=== PATIENT | female | born 1975 | race Caucasian/White ===

== ENCOUNTER → 2017-11-01 18:13 | Outpatient (REF) | payer BC, SELFPAY | LOC: LAB 18:13 | PROVIDERS: Visit Provider Nurse Practitioner Obstetrics & Gynecology | DX: Z01.419 Encounter for gynecological examination (general) (routine) without abnormal findings (principal) | CPT/HCPCS: 87086; 87088; 87186 ==

== ENCOUNTER → 2018-12-27 17:02 | Outpatient (CLI) | payer BC, SELFPAY ==
--- NOTE | 2018-12-27 17:03 | MM_ITS ---
PROCEDURE: MM DIG SCREENING MAMM BI W/CAD CLINICAL INDICATION: Routine Screening Mammogram There is no personal or family history of breast cancer. COMPARISON: DMSB DIGITAL MAMM-SCREEN BILATERAL from 08/07/2010 DMDXUL DIG MAMM-DX UNI-LT from 07/25/2015 TECHNIQUE: Standard CC and MLO images were obtained. R2 CAD reviewed. FINDINGS: There is a markedly dense and heterogenic parenchymal pattern lessening the sensitivity of mammography. The findings of bilateral and symmetrical. There are few scattered benign-appearing calcifications in each breast. There is no suspicious lesion in either breast and no suspicious microcalcifications. IMPRESSION: Markedly dense parenchymal pattern with no suspicious BI-RAD Category: 2 Benign Finding(s) FOLLOW-UP: 1YR 1 Year Follow-up (A letter has been sent to the patient regarding results of the study.) Dictated by: Dr. Binu Monroe MD 12/30/2018 15:[address] Binu Monroe MD in [place] 12/30/2018 15:28
== END ==
PROVIDERS: PCP Family Medicine; Visit Provider Nurse Practitioner Obstetrics & Gynecology
DX: Z12.31 Encounter for screening mammogram for malignant neoplasm of breast (principal)
CPT/HCPCS: 77067

== ENCOUNTER → 2019-01-03 16:10 | Outpatient (CLI) | payer BC, SELFPAY | PROVIDERS: Visit Provider Nurse Practitioner Obstetrics & Gynecology | DX: N39.0 Urinary tract infection, site not specified (principal) | CPT/HCPCS: 87086; 87088; 87186 ==

== ENCOUNTER → 2019-02-07 08:30 | Outpatient (POV) | payer BC, SELFPAY | PROVIDERS: Visit Provider Dermatology | DX: Z00.00 Encounter for general adult medical examination without abnormal findings (principal) ==

== ENCOUNTER → 2020-05-20 07:59 | Outpatient (CLI) | payer BC, SELFPAY ==
--- NOTE | 2020-05-20 07:59 | MM_ITS ---
PROCEDURE: MM DIG SCREENING MAMM BI W/CAD Digital Breast Tomosynthesis Included CLINICAL INDICATION: Routine Screening Mammogram There is no personal or family history of breast cancer. COMPARISON: MG DMSB DIGITAL MAMM-SCREEN BILATERAL from 08/07/2010 MG DMDXUL DIG MAMM-DX UNI-LT from 07/25/2015 MG MM DIG SCREENING MAMM BI W/CAD from 12/27/2018 TECHNIQUE: Standard CC and MLO images and 3D Tomosynthesis was obtained. R2 CAD reviewed. FINDINGS: There is a markedly dense and heterogenic parenchymal lessening the sensitivity of mammography. Gagan images are most helpful in this type of dense breast parenchyma. There are diffuse scattered microcalcifications in both breasts most typical of sclerosing adenosis. There is no suspicious lesion and no suspicious microcalcifications. IMPRESSION: Markedly dense parenchymal pattern with no suspicious lesions seen BI-RAD Category: 2 Benign Finding(s) FOLLOW-UP: 1YR 1 Year Follow-up (A letter has been sent to the patient regarding results of the study.) Dictated by: Dr. Binu Monroe MD 05/25/2020 09:33 Dr. Binu Monroe MD in [place] 05/25/2020 09:33
== END ==
PROVIDERS: PCP Family Medicine; Visit Provider Nurse Practitioner Obstetrics & Gynecology
DX: Z12.31 Encounter for screening mammogram for malignant neoplasm of breast (principal)
CPT/HCPCS: 77063; 77067

== ENCOUNTER 2020-07-12 22:01 | Emergency (ER) | payer BC, SELFPAY ==
--- NOTE | 2020-07-12 22:06 | HMH.EDGENADL ---
ED Disposition Clinical Impression: Mastitis, Cellulitis Disposition: Home, Self-Care Condition on Discharge: Good Instructions: Cellulitis Additional Instructions: Use warm/cold compresses on area of erythema. Take antibiotics as prescribed. Use ibuprofen for mild pain and previously prescribed [place] for breakthrough pain. Do not operate heavy machinery or drink alcohol while taking [place]. Antibiotic Prescription has been sent to [facility] to be picked up tomorrow, Wednesday, morning. This medication should be started at that time. Please call your POLITICAL [facility]EARCH SCIENTIST for an appointment as soon as possible. If any fever/chills, worsening erythema, worsening pain, purulent drainage/fluctuance noted to the area of erythema, generalized malaise, or other new concerning symptoms prior to following up with POLITICAL [facility]EARCH SCIENTIST please immediately report back to our emergency department. Prescriptions: Dicloxacillin Sodium 500 mg PO Q6 10 Days #40 cap Transmission Status: Received by [id number] Referrals: Tyrone Shaw MD [Primary Care Provider] - - Critical Care Critical Care Time: No Attestation: On , the high probability of a clinically significant, sudden or life threatening deterioration of the following system(s) required my full and direct attention, intervention and personal management. The time I documented below is in addition to time spent performing reported procedures but includes the following listed in this critical care notation. Medical Decision Making - Medical Records Medical records reviewed: Yes: I reviewed the patient's medical records. - Dexter Inquiry Pt receiving controlled substance: Yes Dexter was queried for this patient: No Reason not queried -: Emergent pt cond-no time Risks and benefits of using a controlled substance: were discussed with pt by me Vital Signs: 07/12/20 22:39 07/12/20 23:04 07/13/20 00:00 Temperature 98.2 F Temperature Source Oral Pulse Rate 88 99 H Pulse Rate [Left] 84 Respiratory Rate 18 Blood Pressure 111/51 L 116/59 L Blood Pressure [Left Arm] 112/70 Blood Pressure Mean [Left Arm] 84 Blood Pressure Source Automatic Cuff Automatic Cuff Blood Pressure Source [Left Arm] Automatic Cuff Blood Pressure Position Supine Supine 02 Sat by Pulse Oximetry 100 100 100 Oxygen Delivery Method Room Air Room Air Room Air 07/13/20 00:30 Temperature Temperature Source Pulse Rate 86 Pulse Rate [Left] Respiratory Rate Blood Pressure 108/48 L Blood Pressure [Left Arm] Blood Pressure Mean [Left Arm] Blood Pressure Source Automatic Cuff Blood Pressure Source [Left Arm] Blood Pressure Position Sitting 02 Sat by Pulse Oximetry 100 Oxygen Delivery Method Room Air - Lab Data Lab Results 07/12/20 22:25: WBC 14.6 H, RBC 4.16 L, Hgb 12.5, Hct 39.4, MCV 94.8, MCH 30.1, MCHC 31.8, RDW 12.8, Plt Count 186, MPV 9.4, Neut % (Auto) 87.7 H, Lymph % (Auto) 6.9 L, Mccormick % (Auto) 5.2, Eos % (Auto) 0.1, Baso % (Auto) 0.1, Neut # (Auto) 12.8 H, Lymph # (Auto) 1.0, Mccormick # (Auto) 0.8, Eos # (Auto) 0.0, Baso # (Auto) 0.0, Total Counted 100, Neutrophils % (Manual) 87 H, Lymphocytes % (Manual) 10, Monocytes % (Manual) 3, Platelet Estimate Normal, RBC Morphology Normal 07/12/20 22:25: Sodium 133 L, Potassium 3.9, Chloride 103, Carbon Dioxide 21 L, Anion Gap 12.9, BUN 10, Creatinine 0.70, Estimated GFR 92, Est GFR ( Amer) 111, Glucose 130 H, Calcium 9.1, Total Bilirubin 2.9 H, AST 25, ALT 14, Alkaline Phosphatase 64, C-Reactive Protein 75.0 H, Total Protein 7.0, Albumin 4.2, Globulin 2.8, Albumin/Globulin Ratio 1.5 07/12/20 22:25: Lactate 1.8 Result diagrams: 07/12/20 22:25 07/12/20 22:25 Orders (Tests/Meds): ED MEDICATIONS Generic Name Dose Route Start Last Admin Trade Name Freq PRN Reason Stop Dose Admin Piperacillin Sod/Tazobactam 50 mls @ 100 mls/hr 07/12/20 23:00 07/12/20 23:11 Sod 3.375 gm/ Sodium Chloride IV 07/26/20 22:59 100 mls/hr Q8H SAMUEL Administra
[2020-07-12 22:39] VITALS: BP 112/70; PULSE 84; RESP 18; TEMP 36.8; O2SAT 100; BMI 24.2
[2020-07-12 22:41] LABS: Basophils % 0.1 % (0.1-2.0); Eosinophils % 0.1 % (0.1-12.0); Hematocrit 39.4 % (37.0-47.0); Hemoglobin 12.5 g/dL (12.2-16.2); Lymphocytes % 6.9 % (10-50); Mean Corpuscular HGB Conc 31.8 g/dL (31.8-35.4); Mean Corpuscular Hemoglobin 30.1 pg (27.0-31.2); Mean Corpuscular Volume 94.8 fl (81-99); Mean Platelet Volume 9.4 fl (7.4-10.4); Monocytes # 0.8 K/mm3 (0.1-1.0); Monocytes % 5.2 % (1.7-9.3); Neutrophils # 12.8 K/mm3 (1.8-7.8); Neutrophils % 87.7 % (37.0-80.0); Platelet Count 186 K/mm3 (142-424); Red Blood Count 4.16 M/mm3 (4.20-5.40); Red Cell Distribution Width 12.8 % (11.5-17.5); White Blood Count 14.6 K/mm3 (4.8-10.8)
[2020-07-12 22:43] LABS: Chloride 103 mmol/L (98-107); Potassium 3.9 mmoL/L (3.5-5.1); Sodium 133 mmol/L (136-145)
[2020-07-12 22:45] LABS: MANUAL DIFFERENTIAL MANUAL DIFFERENTIAL (MANUAL DIFF)
[2020-07-12 22:46] LABS: Alanine Aminotransferase 14 U/L (12-78); Albumin Level 4.2 g/dl (3.5-5.0); Albumin/Globulin Ratio 1.5 (1.1-1.8); Alkaline Phosphatase 64 U/L (38-126); Anion Gap 12.9 mEq/L (5-15); Aspartate Amino Transferase 25 U/L (14-36); Bilirubin,Total 2.9 mg/dl (0.2-1.3); Blood Urea Nitrogen 10 mg/dl (7-17); Carbon Dioxide 21 mmol/L (22.0-30.0); Estimated Glomerular Filt Rate 92 ml/min (>60); GFR (African American) 111 ML/MIN (>60); Globulin 2.8 g/dL (1.3-3.2)
[2020-07-12 22:47] LABS: Calcium 9.1 mg/dl (8.4-10.2); Glucose 130 mg/dl (74-100); Lactic Acid 1.8 mmol/L (0.7-2.1)
[2020-07-12 23:04] VITALS: BP 111/51; PULSE 88; O2SAT 100
[2020-07-12 23:13] LABS: Lymphocytes % 10 % (10-50); Monocytes % 3 % (2-9); Neutrophils % 87 % (42-76); Platelet Estimate Normal; RBC Morphology Normal; Total Cells Counted 100
--- NOTE | 2020-07-12 23:22 | PC.NURSE ---
This RN present with MD for exam and bedside u/s
--- NOTE | 2020-07-12 23:46 | PC.NURSE ---
dr lakhani returned call
--- NOTE | 2020-07-12 23:49 | PC.NURSE ---
s/w Keaton Hinds for Vanc dosing, 1250mg IV q8
[2020-07-13] VITALS: BP 116/59; PULSE 99; O2SAT 100
[2020-07-13 00:30] VITALS: BP 108/48; PULSE 86; O2SAT 100
[2020-07-13 01:03] VITALS: BP 110/50; PULSE 85; RESP 18; TEMP 36.6; O2SAT 99
--- NOTE | 2020-07-13 01:03 | PC.NURSE ---
cellulitis borders marked to right breast
== END 2020-07-13 01:06 | disposition home or self-care (01) ==
PROVIDERS: Emergency Provider Emergency Medicine; PCP Family Medicine
DX: N61.0 Mastitis without abscess (principal); F41.9 Anxiety disorder, unspecified
CPT/HCPCS: 80053; 83605; 85007; 85025; 86140; 87040; 96365; 96367; 96375; 99283; J2405; J2543; J3370

== ENCOUNTER → 2021-06-17 08:43 | Outpatient (POV) | payer BC, SELFPAY ==
[2021-06-17 08:59] VITALS: BP 112/78; PULSE 73; RESP 18; TEMP 36.9; O2SAT 100; BMI 24.1
--- NOTE | 2021-06-17 09:20 | P.CONS_ITS ---
Assessment and Plan - Assessment and plan all Dx Assessment and Plan for all problems:: A pleasant 45-year-old white female that returns our clinic for complaint of left posterior hip pain. Patient was recently lifting a calf up onto a platform. She had a rather instant left posterior hip pain that she describes as sharp stabbing. She rates the pain 6/10. However, the pain is not constant. In for any length of time increases pain. Standing for any length of time increases pain. Lying on her left side increases pain. Upon examination she has extreme point tenderness over the left SI joint. I discussed in detail with the patient regarding sacroiliitis. We discussed left SI joint injection. She wishes to proceed. HPI - Data of Consult Consult date: 06/17/21 Requesting Physician: Max Dias CRNA - Consult Narrative Reason for consult: Left posterior hip pain. History of present illness: Ms. Street is a 45 year old female CC: Max Dias CRNA [facility] History I have reviewed the patient's past medical history: Yes Medical History: Reports:: Anxiety Denies:: Cancer, Depression, Diabetes Mellitus Type 1, Diabetes Mellitus Type 2, Hyperlipidemia, Hypertension, Migraine, MRSA *Have you ever received a pneumonia vaccine?: No *Have you received a flu vaccine this season?: Yes Other Surgeries: Yes: Appendectomy, Cholecystectomy, , Tubal Ligation Amputation: No Fractures: No - *Social History Smoking Status: Never smoker Alcohol Intake: never Alcohol Intake Frequency:: holidays/special occasions only Substance Use Type: denies use *Occupational Status:: employed Housing: house Household Members: spouse *Travel in the last 8 weeks: None - Psychiatric History Pschychiatric History:: Reports:: Anxiety Denies:: Depression Family Hx:: No significant family history Meds Home Medications Medication Instructions Recorded Confirmed Type hydrocodone 7.5 mg-acetaminophen 1 tab PO Q8H PRN #10 tab 06/20/20 06/17/21 Rx 325 mg tablet Ketorolac Tromethamine [Toradol 10 mg PO Q6H 07/12/20 06/17/21 History 10mg tablet] Valacyclovir HCl [Valacyclovir] 1,000 mg PO DAILY 07/12/20 06/17/21 History Ondansetron [Zofran 4mg ODT] 4 mg PO TIDP PRN 7 Days #21 tab 07/13/20 06/17/21 Rx Allergies Allergy/AdvReac Type Severity Reaction Status Date / Time No Known Allergies Allergy Verified 06/20/20 09:37 Objective Vital signs: Temp Pulse Resp BP Pulse Ox 98.4 F 73 18 112/78 100 06/17/21 08:59 06/17/21 08:59 06/17/21 08:59 06/17/21 08:59 06/17/21 08:59 Opioid Risk Tool - Opioid Risk Tool-Female Family hx alcohol abuse: N Family hx illegal drugs: N Family hx rx drug abuse: N Personal hx alcohol abuse: N Personal hx illegal drugs: N Personal hx rx drug abuse: N Age: 16-45 Hx of sexual abuse: N Mental health issues-ADD,OCD,Bipolar, etc: N Hx of depression: N Female Risk Score: 1
== END ==
PROVIDERS: Visit Provider Nurse Anesthetist, Certified Registered
DX: M25.552 Pain in left hip (principal)
CPT/HCPCS: 99202; G0463

== ENCOUNTER 2021-06-20 12:54 | Day surgery (SDC) | payer BC, SELFPAY ==
[2021-06-20 13:06] VITALS: BP 124/67; PULSE 82; RESP 18; TEMP 36.5; O2SAT 99; BMI 24.1
--- NOTE | 2021-06-20 13:20 | HMH.PMPROC ---
- Procedure Date: 06/20/21 (n) Time: 13:20 Anesthesiologist:: Max Dias CRNA Complications:: None Pre-procedure Diagnosis:: Left sacroiliitis Post-procedure Diagnosis:: Same Indications for Procedure:: Very pleasant 45-year-old white female that presented to our pain clinic a few days ago after having a sharp pain in the left posterior hip area. She had lifted a calf up onto a platform and been having this pain over the left SI joint. She states the pain increases when standing and or sitting. Pain increases when lying on her left side. She has extreme point tenderness over the left SI joint. She rates the pain 8/10. We will inject the left SI joint today. Procedure Details:: Procedure: Left sacroiliac injection under fluoroscopy Informed consent was obtained and the risk and benefits of the procedure were explained to the patient.~ The patient was taken to the procedure room and noninvasive monitors were placed including noninvasive blood pressure cuff and pulse oximeter.~ The patient was placed prone on the procedure table.~ The~ left hip was cleansed using Betadine as a cleansing solution.~ C-arm fluorosocpy was used to view the left SI joint.~ The skin and subcutaneous tissues were anesthetized using Lidocaine 1.5% and a 25-gauge needle.~ After this, a 22-gauge spinal needle was inserted under fluoroscopic guidance into the inferior aspect of the left SI joint.~ Omnipaque dye was injected and a good spread was seen throughout the joint.~ After this, approximately 5 mL of bupivacaine 0.25% and Depo-Medrol 40 mg was incrementally injected into the sacroiliac joint.~ The patient tolerated the procedure well with no complications.~ The patient was observed in the Pain Clinic for a period of 30-45 minutes, then discharged home neurologically intact.~ Plan and Disposition:: Patient was reevaluated 10 minutes post procedure. She reports no pain over the left SI joint. Pending, stretching, walking produces no pain.
[2021-06-20 13:21] VITALS: BP 112/69; PULSE 84; RESP 20; O2SAT 100
[2021-06-20 13:22] VITALS: BP 112/69; PULSE 88; RESP 20; O2SAT 100
[2021-06-20 13:29] VITALS: BP 121/73; PULSE 90; RESP 20; O2SAT 98
== END 2021-06-20 13:29 | disposition home or self-care (01) ==
LOC: SC.PAINP 12:55
PROVIDERS: PCP Nurse Practitioner Family; Visit Provider Nurse Anesthetist, Certified Registered
DX: M46.1 Sacroiliitis, not elsewhere classified (principal); F41.9 Anxiety disorder, unspecified; Z90.49 Acquired absence of other specified parts of digestive tract
CPT/HCPCS: 27096; G0260; J1040

== ENCOUNTER → 2021-07-28 11:33 | Outpatient (POV) | payer BC, SELFPAY ==
[2021-07-28 12:58] VITALS: BP 136/83; PULSE 89; RESP 18; TEMP 37.2; O2SAT 100; BMI 24.1
--- NOTE | 2021-07-28 14:51 | HMH.PAINSOAP ---
[facility] Pain Management SOAP Note Subjective:: Patient is a pleasant 46-year-old female who presents today for follow-up after a left SI injection on June 20, 2021. Patient is currently being treated for left-sided sacroiliitis. After the procedure, patient had significant relief of 90 to 100%. Rates pain today 0 out of 10. Patient says that she has been able to increase her activity since injection. Denies any issues after the procedure. She does note some intermittent tenderness and numbness around the mid back. She says that she started having these episodes after the injection. She is unsure if these intermittent tenderness and numbness is related to the injection. Denies any loss of bowel and bladder functions. Denies any recent falls or traumas. Dexter [id number] with an active morphine equivalent of 0. Review of Systems: General: No recent weight changes, no fever, no sleep disturbances Respiratory: No cough, no shortness of air, no recurring pulmonary infections Cardiovascular/peripheral vascular: No chest pain, no palpitations, no edema, no shortness of breath Gastrointestinal: No new onset incontinence, normal bowel movements reported Genitourinary: No new onset incontinence Musculoskeletal: Improving back pain Psychiatric: [Normal mood/affect] Neurological: [Denies weakness in extremities], [denies balance issues] Objective:: Physical Exam: General: Alert and oriented x3, no acute distress, pleasant and cooperative Lungs: Respirations even and unlabored, symmetrical chest expansion Eyes: PERRL Musculoskeletal: Increased range of motion of the left hip Neurological: Speech clear, no gross sensory deficit Assessment:: Left-sided sacroiliitis Plan:: Patient continues to have significant relief after the left SI injection. We will follow-up with this patient in 3 months to reevaluate chronic pain syndrome and to see if she needs repeat injections. I discussed with the patient that if she continues to have intermittent mid back pain/tenderness, numbness, we will consider getting a thoracic MRI. Patient has been instructed to contact the clinic with any concerns before the next appointment. Dr. Pearce has reviewed this note and agrees with this plan of care. This note was dictated using voice recognition software and make contain errors or omissions. [facility] History Medical History: Reports:: Anxiety Denies:: Cancer, Depression, Diabetes Mellitus Type 1, Diabetes Mellitus Type 2, Hyperlipidemia, Hypertension, Migraine, MRSA *Have you ever received a pneumonia vaccine?: No *Have you received a flu vaccine this season?: Yes Other Surgeries: Yes: Appendectomy, Cholecystectomy, , Tubal Ligation Amputation: No Fractures: No - *Social History Smoking Status: Never smoker Alcohol Intake: never Alcohol Intake Frequency:: holidays/special occasions only Substance Use Type: denies use *Occupational Status:: employed Housing: house Household Members: spouse *Travel in the last 8 weeks: None - Psychiatric History Pschychiatric History:: Reports:: Anxiety Denies:: Depression Family Hx:: No significant family history
== END ==
PROVIDERS: Visit Provider Student in an Organized Health Care Education/Training Program
DX: M46.1 Sacroiliitis, not elsewhere classified (principal)
CPT/HCPCS: 99212; G0463

== ENCOUNTER 2022-02-27 12:29 | Emergency (ER) | payer BC, SELFPAY ==
[2022-02-27 12:35] VITALS: BP 128/73; PULSE 78; RESP 18; TEMP 36.6; O2SAT 98; BMI 24.5
--- NOTE | 2022-02-27 12:54 | EXP.UTC ---
Discharge Plan Disposition Patient Disposition: Home, Self-Care Condition: Good Prescriptions Prescriptions: New azithromycin [Zithromax Z-Chintan] 250 mg tablet See Rx Instructions .ROUTE .COMPLEX 5 Days Qty: 6 0RF Rx Instructions: For 250 mg dose pack: take 500 mg today (day 1), then 250 mg for 4 days (days 2-5) methylprednisolone [Medrol (Chintan)] 4 mg tablets,dose pack See Rx Instructions .Route .COMPLEX 6 Days Qty: 21 0RF Rx Instructions: taper pack; Referrals Follow up/Referrals: Sumi Goel APRN [Primary Care Provider] - See instructions Activity Restrictions/Add. Instructions Additional Instructions/Restrictions: *Monitor Temp, Over the counter Motrin or Tylenol as directed/as needed Tylenol every 4 hours and Motrin every 6 hours (as long as your family doctor has told you that you can take it) for fever or pain. and straight to ER if unable to lower temp less than 101.0 after medication given *Warm salt water gargles may help to soothe the throat *Throat Lozenges? *Warm fluids like tea with honey may help to soothe the throat? *Sleep elevated *Humidifier/Vaporizer Follow up IMMEDIATELY for new or worsening symptoms or no Noticeable improvement over the next 48-72 hours. 911 for difficulty breathing or swallowing Clinical Impressions Clinical Impression: Sinusitis Qualifiers: Sinusitis location: unspecified location Chronicity: unspecified Qualified Code(s): J32.9 - Chronic sinusitis, unspecified Instructions Patient Instructions: Sinusitis, DI for Sinusitis Discharge ED Provider: Monalisa Ireland [facility] HPI General Stated complaint: congestion Mode of Arrival: Ambulatory Source of Information: Patient Limitations: No Limitations Time Seen by Provider: 02/27/22 12:55 Description of Symptoms (Recalled from Triage Doc. by RN): PATIENT C/O CONGESTION X 2 DAYS HEENT Symptoms (Recalled from RN notes): Yes Resp Symptoms (Recalled from RN notes): No Skin Symptoms (Recalled from RN notes): No MS Symptoms (Recalled from RN notes): No Functional Status (Recalled from RN notes): WNL History of Present Illness Provider Complaint: Patient states that she has been having sinus congestion and pressure for several days States that today it was worse States that she wasnt feeling any better so she came in to get checked out Related Data Previous Rx's Medication Instructions Recorded azithromycin 250 mg tablet See Rx Instructions PO .COMPLEX 5 02/27/22 (Zithromax Z-Chintan) days #6 tabs methylprednisolone 4 mg tablets in See Rx Instructions .Route 02/27/22 a dose pack (Medrol (Chintan)) .COMPLEX 6 days #21 tabs Allergies Allergy/AdvReac Type Severity Reaction Status Date / Time No Known Allergies Allergy Verified 07/01/21 13:50 Worker's Comp Is this a Worker's Comp case?: No [facility] Disclaimer: The information contained in this section may have been updated after the patient was seen, as this information can be updated by other users. Surgical History (Updated 02/27/22 @ 12:48 by Emily Tanner RN) History of section History of cholecystectomy History of tubal ligation Social History (Updated 02/27/22 @ 12:48 by Emily Tanner RN) Smoking Status: Never smoker second hand exposure: No alcohol intake: never substance use type: denies use current occupational status: employed Travel in the last 8 weeks: None household members: spouse housing: house current occupational exposures/hazards: No caffeine: Yes ROS Obtained: Yes All systems reviewed & no additional complaints except as documented and Yes Systems reviewed as appropriate & no additional complaints except as documented Constitutional Constitutional: Reports system reviewed and no additional complaints, except as documented and Reports as per HPI ENT Ears, Nose, Mouth, and Throat: Reports system reviewed and no additional complaints, except as documented, Re
[2022-02-27 13:04] VITALS: BP 128/73; PULSE 78; RESP 18; TEMP 36.6; O2SAT 98
== END 2022-02-27 13:27 | disposition home or self-care (01) ==
PROVIDERS: Emergency Provider Nurse Practitioner; PCP Nurse Practitioner Family
DX: J32.9 Chronic sinusitis, unspecified (principal)
CPT/HCPCS: 99212; G0463

== ENCOUNTER → 2022-04-30 14:37 | Outpatient (CLI) | payer BC, SELFPAY ==
--- NOTE | 2022-04-30 14:40 | MM_ITS ---
PROCEDURE INFORMATION: Exam: MG Bilateral Screening 3D Mammography Exam date and time: 04/30/2022 2:34 PM Age: 46 years old Clinical indication: Screening. No family history of breast cancer. TECHNIQUE: Imaging protocol: Bilateral Screening tomosynthesis and 2D mammography including computer-aided detection (CAD) when performed. COMPARISON: 1. MG MAMMOGRAPHY BREAST DIAGNOSTIC TOMOSYNTHESIS BILATERAL 02/25/2021 8:17 AM 2. MG MAMMOGRAPHY BREAST POST BIOPSY CLIP RIGHT 09/02/2020 8:52 AM 3. MG MAMMOGRAPHY BREAST DIAGNOSTIC TOMOSYNTHESIS BILATERAL 08/22/2020 2:38 PM 4. MG MM DIG SCREENING MAMM BI W/CAD 05/20/2020 8:04 AM FINDINGS: MAMMOGRAPHY: Breast composition: The breasts are extremely dense, which lowers the sensitivity of mammography. Mass: None. Architectural distortion: None. Calcifications: No significant change in extensive bilateral benign-appearing calcifications. No suspicious calcifications. Asymmetric density: None. Skin thickening: None. Axillary adenopathy: None. Other findings: Left biopsy clip. IMPRESSION: No mammographic evidence of malignancy. Annual screening is recommended unless otherwise clinically indicated. ASSESSMENT: BI-RADS Category 2: Benign
--- NOTE | 2022-04-30 14:45 | XR_ITS ---
FINAL REPORT CLINICAL HISTORY: LUMBAGO W/SCIATICA,BULGING LUMBAR DISC COMPARISON: 06/29/2016 FINDINGS: LUMBAR SPINE Six views demonstrate no acute fracture. There is mild degenerative change with osteophytes. Note is made of leftward curvature. The alignment is otherwise normal. There is been no significant change since prior. IMPRESSION: Mild degenerative changes. Reviewed, Interpreted and Dictated by Phoenix Pratt III, MD Transcribed by Steph Esquivel Authenticated and [facility]
== END ==
PROVIDERS: PCP Nurse Practitioner Family; Visit Provider Nurse Practitioner Family
DX: Z12.31 Encounter for screening mammogram for malignant neoplasm of breast (principal); M54.42 Lumbago with sciatica, left side; M51.26 Other intervertebral disc displacement, lumbar region
CPT/HCPCS: 72110; 77063; 77067

== ENCOUNTER → 2022-06-12 11:09 | Outpatient (CLI) | payer BC, SELFPAY ==
--- NOTE | 2022-06-12 | XR_ITS ---
FINAL REPORT CLINICAL HISTORY: DYSURIA COMPARISON: none FINDINGS: ABDOMEN SINGLE VIEW / KUB A single view of the abdomen was obtained with a coned down view of the pelvis. There is a nonspecific bowel gas pattern. There is a moderate amount of stool throughout the colon. There are no abnormally dilated loops of small bowel. No abnormal calcification is identified. There is mild lumbar scoliosis convex to the left. Tubal ligation clips are noted bilaterally. IMPRESSION: Moderate stool. Reviewed, Interpreted and Dictated by Gary Yañez MD Transcribed by Hazel Root Authenticated and [facility]
== END ==
PROVIDERS: PCP Nurse Practitioner Family; Visit Provider Nurse Practitioner Family
DX: M54.50 Low back pain, unspecified (principal); R30.0 Dysuria; R31.9 Hematuria, unspecified
CPT/HCPCS: 74018

== ENCOUNTER → 2022-07-14 19:15 | Outpatient (CLI) | payer BC, SELFPAY | PROVIDERS: Visit Provider Nurse Practitioner Obstetrics & Gynecology | DX: R39.9 Unspecified symptoms and signs involving the genitourinary system (principal); B96.29 Other Escherichia coli [E. coli] as the cause of diseases classified elsewhere | CPT/HCPCS: 87086; 87088; 87186 ==

== ENCOUNTER → 2022-07-22 07:20 | Outpatient (CLI) | payer BC, SELFPAY ==
--- NOTE | 2022-07-22 07:21 | US_ITS ---
FINAL REPORT CLINICAL HISTORY: abnormal heavy bleeding with periods / Dyspareunia FINDINGS: Transvaginal sonographic images of the pelvis were obtained. The uterus measures 7.9 x 4.8 x 6.0 cm. The endometrium measures 0.35 cm, which is within normal limits. Multiple nabothian cysts are seen in the cervix. The right ovary measures 2.1 x 1.9 x 2.4 cm in length and left ovary measures 2.5 x 1.8 x 2.2 cm in length. Normal blood flow seen to the ovaries. Small follicles are present. There is no evidence of free fluid. IMPRESSION: Multiple nabothian cysts. Reviewed, Interpreted and Dictated by Phoenix Pratt III, MD Transcribed by Steph Esquivel Authenticated and [facility]
== END ==
PROVIDERS: PCP Family Medicine; Visit Provider Nurse Practitioner Obstetrics & Gynecology
DX: N93.9 Abnormal uterine and vaginal bleeding, unspecified (principal); N94.10 Unspecified dyspareunia
CPT/HCPCS: 76830

== ENCOUNTER → 2022-09-03 15:10 | Outpatient (POV) | payer BC, SELFPAY ==
[2022-09-03 15:21] VITALS: BP 125/73; PULSE 84; RESP 18; BMI 25.2
--- NOTE | 2022-09-03 15:34 | EXP.PAIN.SOA ---
[facility] Pain Management SOAP Note Subjective:: Patient is a pleasant 47-year-old female who presents today for follow-up. We are currently treating the patient for chronic sacroiliitis. Today she rates her pain a 7 out of 10. Patient states she has been experiencing worsening pain in her low back along the left side with radiating symptoms into her left hip. Patient does describe this as a constant aching sensation that is worse with increased activity. Patient states that she cannot sleep at all on her left side due to the worsening pain. She does also state that she has difficulty with prolonged positioning like sitting, standing or walking due to the pain symptoms. She states she has been trying to manage it at home and was prescribed naproxen which she states does help a little however it continues to be a worsening issue. Patient does state that what initially triggered this episode had to do with her riding on a horse and aggravated her sciatica. She also states she has even been having some left-sided low back pain that she thought may have been a pulled muscle. She states her primary care doctor even mention that she could have a kidney stone however she had no acute findings. Patient does have a history of chronic sacroiliitis that has had upwards of 90 to 100% relief with SI injections. Patient does state that she has tried [id number] Tylenol and ibuprofen along with heat and ice and topicals with no additional relief. Patient is not on any scheduled medications. Her Dexter has been reviewed and is appropriate. Review of Systems: General: No recent weight changes, no fever, no sleep disturbances Respiratory: No cough, no shortness of air, no recurring pulmonary infections Cardiovascular/peripheral vascular: No chest pain, no palpitations, no edema, no shortness of breath Gastrointestinal: No new onset incontinence, normal bowel movements reported Genitourinary: No new onset incontinence Musculoskeletal: Low back pain left-sided, left hip pain Psychiatric: [Normal mood/affect] Neurological: [Denies weakness in extremities], [denies balance issues] Objective:: Physical Exam: General: Alert and oriented x3, no acute distress, pleasant and cooperative Lungs: Respirations even and unlabored, symmetrical chest expansion Eyes: PERRL Musculoskeletal: Flexion and extension of lumbar [spine] somewhat guarded secondary to pain, [antalgic gait noted] extreme point tenderness along left SI with positive left Selma's, Elissa's, Gaenslen's, compression and distraction exam Neurological: Speech clear, no gross sensory deficit ORT score updated with low risk Oswestry index score of 17 Assessment:: Chronic sacroiliitis Plan:: Patient is experiencing significant pain in her low back along the left side with limited range of motion. Patient did have extreme point tenderness along her left SI with a positive left Selma's, Elissa's, Gaenslen's, compression and distraction exam. I have discussed with the patient that she may benefit from repeat left SI injection. Patient has previously had these injections that provided 90 to 100% relief lasting over a year at a time. Risk and benefits of this injection were discussed with the patient and she would like to proceed forward with this plan of care. I will also order the patient a compounding cream. Patient will be scheduled for a left SI injection. Patient has been instructed to contact the clinic with any concerns before the next appointment. Dr. Pearce has reviewed this note and agrees with this plan of care. This note was dictated using voice recognition software and make contain errors or omissions. [facility] Disclaimer: The information contained in this section may have been updated after the patient was seen, as this information can be updated by other users. Surgical History History of section History of cholecystectomy History of tubal
== END ==
PROVIDERS: Visit Provider Nurse Practitioner Family
DX: M46.1 Sacroiliitis, not elsewhere classified (principal)
CPT/HCPCS: 99212; G0463

== ENCOUNTER → 2022-09-28 09:18 | Outpatient (CLI) | payer BC, SELFPAY ==
[2022-09-28 09:32] LABS: Basophils % 0.7 % (0.1-2.0); Eosinophils # 0.1 K/mm3 (0.0-0.4); Eosinophils % 1.2 % (0.1-12.0); Hematocrit 45.7 % (37.0-47.0); Hemoglobin 14.7 g/dL (12.2-16.2); Lymphocytes # 1.9 K/mm3 (0.7-4.5); Lymphocytes % 29.5 % (10-50); Mean Corpuscular HGB Conc 32.3 g/dL (31.8-35.4); Mean Corpuscular Hemoglobin 30.3 pg (27.0-31.2); Monocytes # 0.5 K/mm3 (0.1-1.0); Monocytes % 7.6 % (1.7-9.3); Neutrophils # 3.9 K/mm3 (1.8-7.8); Platelet Count 294 K/mm3 (142-424); Red Blood Count 4.86 M/mm3 (4.20-5.40); Red Cell Distribution Width 13.1 % (11.5-17.5); White Blood Count 6.4 K/mm3 (4.8-10.8)
[2022-09-28 10:50] LABS: Chloride 107 mmol/L (98-107); Potassium 3.9 mmoL/L (3.5-5.1); Sodium 138 mmol/L (136-145)
[2022-09-28 10:52] LABS: Blood Urea Nitrogen 14 mg/dl (7-17); Estimated Glomerular Filt Rate 78 ml/min (>60); GFR (African American) 94 ML/MIN (>60)
[2022-09-28 10:53] LABS: Alanine Aminotransferase 18 U/L (12-78); Albumin Level 4.2 g/dl (3.5-5.0); Albumin/Globulin Ratio 1.4 (1.1-1.8); Alkaline Phosphatase 76 U/L (38-126); Anion Gap 12.9 mEq/L (5-15); Aspartate Amino Transferase 25 U/L (14-36); Bilirubin,Total 1.3 mg/dl (0.2-1.3); Calcium 9.4 mg/dl (8.4-10.2); Carbon Dioxide 22 mmol/L (22.0-30.0); Globulin 2.9 g/dL (1.3-3.2); Glucose 105 mg/dl (74-100); Total Protein,Serum 7.1 g/dl (6.3-8.2)
[2022-09-28 11:23] LABS: HCG,Quantitative < 2 mIU/ml (0-5.42)
== END ==
PROVIDERS: PCP Nurse Practitioner Family; Visit Provider Nurse Practitioner Obstetrics & Gynecology
DX: N93.8 Other specified abnormal uterine and vaginal bleeding (principal)
CPT/HCPCS: 36415; 80053; 84702; 85025

== ENCOUNTER 2022-09-29 07:59 | Day surgery (SDC) | payer BC, SELFPAY ==
[2022-09-29 08:24] VITALS: BP 92/62; PULSE 81; RESP 16; TEMP 36.8; O2SAT 99; BMI 23.3
[2022-09-29 09:00] VITALS: BP 99/65; PULSE 72; RESP 20
--- NOTE | 2022-09-29 09:10 | EXP.PAIN.PRO ---
Procedure Date: 09/29/22 Time: 08:50 Anesthesiologist:: Max Dias CRNA Complications:: None Pre-procedure Diagnosis:: Left sacroiliitis Post-procedure Diagnosis:: Same Indications for Procedure:: Very pleasant 47-year-old female comes our clinic today for left sacroiliac joint injection. She has extreme point tenderness upon examination over the left sacroiliac joint. She complains of difficulty while riding her horse. Difficulty with transitioning sitting to standing. She rates her pain 7/10. Patient had significant improvement with right side sacroiliitis following right sacroiliac joint injection. Procedure Details:: Procedure: Left sacroiliac injection under fluoroscopy Informed consent was obtained and the risk and benefits of the procedure were explained to the patient.~ The patient was taken to the procedure room and noninvasive monitors were placed including noninvasive blood pressure cuff and pulse oximeter.~ The patient was placed prone on the procedure table.~ The~ left hip was cleansed using Betadine as a cleansing solution.~ C-arm fluorosocpy was used to view the left SI joint.~ The skin and subcutaneous tissues were anesthetized using Lidocaine 1.5% and a 25-gauge needle.~ After this, a 22-gauge spinal needle was inserted under fluoroscopic guidance into the inferior aspect of the left SI joint.~ Omnipaque dye was injected and a good spread was seen throughout the joint.~ After this, approximately 5 mL of bupivacaine 0.25% and Depo-Medrol 40 mg was incrementally injected into the sacroiliac joint.~ The patient tolerated the procedure well with no complications.~ The patient was observed in the Pain Clinic for a period of 30-45 minutes, then discharged home neurologically intact.~ Plan and Disposition:: Patient was discharged without incident.
[2022-09-29 09:15] VITALS: BP 130/67; PULSE 72; RESP 18; O2SAT 99
== END 2022-09-29 09:10 | disposition home or self-care (01) ==
PROVIDERS: PCP Nurse Practitioner Family; Visit Provider Nurse Anesthetist, Certified Registered
DX: M46.1 Sacroiliitis, not elsewhere classified (principal)
CPT/HCPCS: 27096; G0260

== ENCOUNTER 2022-10-05 06:06 | Day surgery (SDC) | payer BC, SELFPAY ==
[2022-10-01 09:55] VITALS: BMI 25.0
[2022-10-05] VITALS (12 sets, daily range): BP systolic 93–138; BP diastolic 51–76; PULSE 64–99; RESP 16–18; TEMP 36.2–43; O2SAT 98–100
--- NOTE | 2022-10-05 07:04 | P.PNANES_ITS ---
[facility] Disclaimer: The information contained in this section may have been updated after the patient was seen, as this information can be updated by other users. Medical History Urinary tract infection Surgical History History of appendectomy History of section History of tubal ligation Family History Other No significant family history Social History Smoking Status: Never smoker second hand exposure: No alcohol intake: never substance use type: denies use current occupational status: unemployed Travel in the last 8 weeks: None household members: spouse housing: house current occupational exposures/hazards: No caffeine: Yes [facility] Anesthesia Checklist Patient Identification Patient Identification: Arm Band and Verbal (Name & ) Structural Data Admitted From: Home Planned Operative Procedure/s: Hyst/D & C Consent for Planned Operative Procedure(s) Verified: Yes NPO Status Verified Time NPO: 00:00 Chart Verification Results Verified: HCG Additional verifications Anesthesia Reactions: No Hx Blood Transfusions: No Blood Transfusion Reaction: No Airway Assessment C-Spine Mobility Assessed: Yes TMJ Mobility Assessed: Yes Dentition: Good Dentition Neurological Assessment Level of Consciousness: Awake Hx Seizures: No Numbness or tingling in extremities: No Anesthesia Plan Anesthesia Risk discussed: Yes Anesthesia Plan: Verified ASA Class: I Anesthesia Type: MAC
--- NOTE | 2022-10-05 08:00 | EXP.ANES.I ---
[facility] Anesthesia Record Part I Anesthesia Record I Intake, IV Amount: 1,000 Estimated blood loss (mL): 25 Urine output (mL): 0 Blood Pressure: 96/51 SaO2: 98 Pulse Rate: 87 Respiratory Rate: 18 Temperature: 97.4 F Patient is:: Drowsy and Oral/Nasal airway Stable to PACU at:: 08:00
--- NOTE | 2022-10-05 08:09 | EXP.OP.NOTE ---
Date of procedure: 10/05/22 Pre-op Diagnosis:: Menorrhagia Post-op Diagnosis:: Menorrhagia Procedure performed:: Hysteroscopy, dilation and curettage, NovaSure ablation Surgeon:: Shay Garcia MD LIMITED RADIOLOGY TECHNICIAN:: Balwinder Rosas Anesthesia: LMA Estimated blood loss (mL): 25 Clinical Note:: She is a 47-year-old lady who complains of extremely heavy painful periods. After having discussed the risk and benefits she elected to have a NovaSure ablation. Operative findings:: She had a retroverted uterus with a normal-sized endometrial cavity. There was some erythema of the endometrium and the endometrium was quite thin. I suspect she may have had some chronic endometritis. Operative note:: She was taken to the operating room where LMA anesthesia was found be adequate. She was prepped and draped in the normal sterile fashion in the lithotomy position. A weighted speculum was placed in the vagina and the anterior lip of the cervix was grasped with a tenaculum. The cervix was then dilated to approximately 6 mm. I then inserted a hysteroscope into the uterine cavity and the findings were as previously dictated. I then performed a gentle curettage with a medium curette. I then sounded the uterus and determine the length of the uterus. I then inserted the NovaSure device and determine the width of the endometrial cavity. The length was 5.5 cm and the width was 4.7 cm. This was placed into the NovaSure device. I then ran the device through its program. I further inspected the endometrial cavity and was found to be completely charred. I then injected 30 cc of 0.5% ropivacaine at the 3:00, 5:00, 7:00, and 9:00 positions of the cervix. She tolerated procedure well and was taken to the recovery room in excellent condition. All sponge and instrument counts were correct. The estimated blood loss was less than 25 cc. Condition: stable Disposition: PACU Specimens:: Endometrial curettings Complications:: None
--- NOTE | 2022-10-05 10:13 | EXP.ANES.II ---
[facility] Anesthesia Record Part II Anesthesia Record Part II Discharge Time: 08:30 Destination: Surgical Day Care (OP Surgery) PACU nurse assessment reviewed?: Yes Patient Condition:: Good Anesthesia Complications:: None Swallowing reflex intact?: Yes Cyanosis?: No Blood Pressure: 119/70 Pulse Rate: 71 Temperature: 98.4 F Mental Status: Alert & Oriented Pain level:: 0 Nausea and/or vomitting:: None Intake, IV Amount: 0
== END 2022-10-05 09:04 | disposition home or self-care (01) ==
PROVIDERS: PCP Nurse Practitioner Family; Visit Provider Nurse Practitioner Obstetrics & Gynecology
PROC: 0U5B8ZZ Destruction of Endometrium, Via Natural or Artificial Opening Endoscopic (ICD-10-PCS; CPT 58563; principal; 2022-10-05 07:30)
DX: N92.0 Excessive and frequent menstruation with regular cycle (principal); N85.4 Malposition of uterus
CPT/HCPCS: 58563; 96374; J2405

== ENCOUNTER → 2022-10-14 08:58 | Outpatient (POV) | payer BC, SELFPAY ==
[2022-10-14 09:14] VITALS: BP 111/75; PULSE 85; RESP 18; O2SAT 99; BMI 25.0
--- NOTE | 2022-10-14 09:17 | EXP.PAIN.SOA ---
[facility] Pain Management SOAP Note Subjective:: Patient is a pleasant 47-year-old female who presents today for follow-up of left SI injection on 09/29/2022. We are currently treating the patient for chronic sacroiliitis, low back pain. Today she rates her pain a 6 out of 10. Patient states that she did not have any relief following these injections not even lasting a few hours. Patient denies any new trauma or change to the type of pain she experiences. She does state that she has pain in her low back along her left side and is unsure whether or not if it is radiating or into her muscles. Patient is very active and rides on horses which initially aggravated her sciatica in the past. She had previously had improvement with SI injections of upwards of 90 to 100% relief. Patient is currently managed with [place] 7.5 mg 3 times a day from Dr. Root's office and compounding cream from our office. She does state that she has been prescribed naproxen in the past and done well with this however she is out and is requesting a refill if we can fill this. Patient denies any heart or kidney issues. Her Dexter is [id number]. It has been reviewed and appropriate. Review of Systems: General: No recent weight changes, no fever, no sleep disturbances Respiratory: No cough, no shortness of air, no recurring pulmonary infections Cardiovascular/peripheral vascular: No chest pain, no palpitations, no edema, no shortness of breath Gastrointestinal: No new onset incontinence, normal bowel movements reported Genitourinary: No new onset incontinence Musculoskeletal: Low back pain Psychiatric: [Normal mood/affect] Neurological: [Denies weakness in extremities], [denies balance issues] Objective:: Physical Exam: General: Alert and oriented x3, no acute distress, pleasant and cooperative Lungs: Respirations even and unlabored, symmetrical chest expansion Eyes: PERRL Musculoskeletal: Flexion and extension of lumbar [spine] somewhat guarded secondary to pain, [antalgic gait noted] Neurological: Speech clear, no gross sensory deficit FINAL REPORT CLINICAL HISTORY: LUMBAGO W/SCIATICA,BULGING LUMBAR DISC COMPARISON: 06/29/2016 FINDINGS: LUMBAR SPINE Six views demonstrate no acute fracture. There is mild degenerative change with osteophytes. Note is made of leftward curvature. The alignment is otherwise normal. There is been no significant change since prior. IMPRESSION: Mild degenerative changes. Reviewed, Interpreted and Dictated by Phoenix Pratt III, MD Transcribed by Steph Esquivel Authenticated and [facility] Assessment:: Low back pain, chronic sacroiliitis Plan:: Patient continues to experience significant pain in her low back with limited range of motion. I have discussed with the patient's that I will order MRI without contrast of her lumbar spine. Patient had previously had an x-ray that did show mild degenerative change with osteophytes. I will send in a refill of naproxen 375 mg twice daily and provide a 3-month supply of this medication. Patient will follow-up in our office in 1 month following her MRI imaging for reevaluation of symptoms and plan of care. Patient has been instructed to contact the clinic with any concerns before the next appointment. Dr. Pearce has reviewed this note and agrees with this plan of care. This note was dictated using voice recognition software and make contain errors or omissions. [facility] Disclaimer: The information contained in this section may have been updated after the patient was seen, as this information can be updated by other users. Medical History Urinary tract infection Surgical History History of appendectomy History of section History of tubal ligation Family History (Reviewed 10/05/22 @ 07:04
== END | disposition home or self-care (01) ==
PROVIDERS: PCP Nurse Practitioner Family; Visit Provider Nurse Practitioner Family
DX: M46.1 Sacroiliitis, not elsewhere classified (principal); G89.29 Other chronic pain; M54.50 Low back pain, unspecified
CPT/HCPCS: 99212; G0463

== ENCOUNTER → 2022-10-26 09:30 | Outpatient (POV) | payer BC, SELFPAY ==
--- NOTE | 2022-10-26 09:45 | EXP.PAIN.SOA ---
[facility] Pain Management SOAP Note Subjective:: Patient is a pleasant 47-year-old female who presents today for MRI denial. We are currently treating the patient for chronic sacroiliitis, low back pain. Today she rates her pain a 3 out of 10. Patient denies any new trauma or injury or any change location or type of pain she experiences. Patient states she continues to have low back pain and describes it as an aching, throbbing sensation that is worse with increased activity. Patient is very active and rides horses on a regular basis. Patient also goes to the gym 3 times a week and has for the last 2 years with no additional change in her symptoms. Patient has also had physical therapy in the past however noticed no additional improvements and the cost was adding up to more than what she wanted to do with not seeing any added benefit. Patient has been prescribed compounding cream from our office however she states she did not notice significant relief. Patient does use naproxen 375 mg twice a day that she does state helps some of her symptoms. Patient denies any heart or kidney issues. Patient does state that her symptoms always seem worse at night and she has difficulty sleeping due to the pain. Her Dexter has been reviewed and is appropriate. Review of Systems: General: No recent weight changes, no fever, no sleep disturbances Respiratory: No cough, no shortness of air, no recurring pulmonary infections Cardiovascular/peripheral vascular: No chest pain, no palpitations, no edema, no shortness of breath Gastrointestinal: No new onset incontinence, normal bowel movements reported Genitourinary: No new onset incontinence Musculoskeletal: Low back pain Psychiatric: [Normal mood/affect] Neurological: [Denies weakness in extremities], [denies balance issues] Objective:: Physical Exam: General: Alert and oriented x3, no acute distress, pleasant and cooperative Lungs: Respirations even and unlabored, symmetrical chest expansion Eyes: PERRL Musculoskeletal: Flexion and extension of lumbar [spine] somewhat guarded secondary to pain, [antalgic gait noted] Neurological: Speech clear, no gross sensory deficit Assessment:: Low back pain, chronic sacroiliitis Plan:: Patient continues to experience significant pain in her low back with limited range of motion. Patient's MRI was denied due to not having at least 6 weeks of physical therapy or at home exercise. Patient has continued to do at home exercises and stretching 3 times a week for more than 12 weeks with no additional relief. Patient has tried and failed conservative therapy such as oral medication, heat and ice, topicals, physical therapy and at home stretching and exercise. We will resubmit to insurance for her lumbar MRI and contact the patient once we have approval. I will also order the patient tizanidine 4 mg at bedtime and provide a 2-week supply of this medication. Patient will return to clinic in 1 month for reevaluation of symptoms and plan of care. Patient has been instructed to contact the clinic with any concerns before the next appointment. Dr. Pearce has reviewed this note and agrees with this plan of care. This note was dictated using voice recognition software and make contain errors or omissions. [facility] Disclaimer: The information contained in this section may have been updated after the patient was seen, as this information can be updated by other users. Medical History Urinary tract infection Surgical History (Updated 10/20/22 @ 09:27 by DEBRA Mejia) History of appendectomy History of section History of endometrial ablation History of tubal ligation Family History Other No significant family history Social History Smoking Status: Never smoker second hand exposure: No alcohol intake: never s
[2022-10-26 10:19] VITALS: BP 109/64; PULSE 75; RESP 18; O2SAT 100; BMI 25.0
== END | disposition home or self-care (01) ==
PROVIDERS: PCP Nurse Practitioner Family; Visit Provider Nurse Practitioner Family
DX: M46.1 Sacroiliitis, not elsewhere classified (principal); M54.50 Low back pain, unspecified; G89.29 Other chronic pain
CPT/HCPCS: 99212; G0463

== ENCOUNTER → 2022-11-16 12:52 | Outpatient (POV) | payer BC, SELFPAY ==
--- NOTE | 2022-11-16 13:20 | EXP.PAIN.SOA ---
[facility] Pain Management SOAP Note Subjective:: Patient is a pleasant 47-year-old female who presents today for follow-up. We are currently treating the patient for chronic sacroiliitis, low back pain. Today she rates her pain an 8 out of 10. Patient denies any new trauma or injury. She states she continues to have a aching, throbbing sensation in her low back that is worse with increased activity. Patient does state that it is not constant but is frequently with certain positions such as bending, twisting or lifting. She does state the pain interferes with her ability perform activities of daily living such as cooking and cleaning. Patient was previously submitted for MRI however insurance denied this and she is currently under a 60-day hold before reapplying for the imaging. Patient denies do exercise on a daily basis as well as go to the gym 3 times a week for the last 2 years. Patient has had physical therapy with minimal improvement. Patient has tried and failed conservative therapy such as oral medication, heat and ice and topicals. Patient is currently prescribed compounding cream and naproxen 375 mg twice a day. Patient denies any heart or kidney issues. Patient does state that her pain does frequently seem worse at night and that she cannot turn side to side without having significant pain. Patient has tried baclofen and tizanidine with no additional improvement. Her Dexter is [id number]. Its been reviewed and appropriate. Review of Systems: General: No recent weight changes, no fever, no sleep disturbances Respiratory: No cough, no shortness of air, no recurring pulmonary infections Cardiovascular/peripheral vascular: No chest pain, no palpitations, no edema, no shortness of breath Gastrointestinal: No new onset incontinence, normal bowel movements reported Genitourinary: No new onset incontinence Musculoskeletal: Low back pain Psychiatric: [Normal mood/affect] Neurological: [Denies weakness in extremities], [denies balance issues] Objective:: Physical Exam: General: Alert and oriented x3, no acute distress, pleasant and cooperative Lungs: Respirations even and unlabored, symmetrical chest expansion Eyes: PERRL Musculoskeletal: Flexion and extension of lumbar [spine] somewhat guarded secondary to pain, [antalgic gait noted] positive Kemps test Neurological: Speech clear, no gross sensory deficit Assessment:: Low back pain with lumbar facet arthropathy, lumbar spondylosis, chronic sacroiliitis Plan:: Patient is a continuing to experience significant pain in her low back with limited range of motion. Patient had a positive Kemps test during today's exam. Patient has tried and failed conservative therapy such as oral medication, heat and ice, topicals, physical therapy, at home exercising and stretching for longer than 2 years. I have discussed with patient that she may benefit from a lumbar medial branch block. Risk and benefits were explained to the patient and she would like to proceed forward with this plan of care. I will also send in a prescription of methocarbamol 750 mg at bedtime and provide a 14-day supply of this medication. Patient will be scheduled for a lumbar medial branch block bilaterally L4-L5 and L5-S1. Patient has been instructed to contact the clinic with any concerns before the next appointment. Dr. Pearce has reviewed this note and agrees with this plan of care. This note was dictated using voice recognition software and make contain errors or omissions. [facility] Disclaimer: The information contained in this section may have been updated after the patient was seen, as this information can be updated by other users. Medical History Urinary tract infection Surgical History (Updated 10/20/22 @ 09:27 by DEBRA Mejia) History of appendectomy History of section History of endometrial ablation History of tubal ligation Family History (Reviewed
[2022-11-16 14:02] VITALS: BP 116/62; PULSE 77; RESP 18; O2SAT 100; BMI 25.0
== END | disposition home or self-care (01) ==
PROVIDERS: PCP Nurse Practitioner Family; Visit Provider Nurse Practitioner Family
DX: M46.1 Sacroiliitis, not elsewhere classified (principal); M47.816 Spondylosis without myelopathy or radiculopathy, lumbar region; G89.29 Other chronic pain
CPT/HCPCS: 99212; G0463

== ENCOUNTER 2022-11-24 09:20 | Day surgery (SDC) | payer BC, SELFPAY ==
[2022-11-24 09:39] VITALS: BP 104/64; PULSE 97; RESP 18; TEMP 37; O2SAT 100; BMI 25.0
[2022-11-24 09:54] VITALS: BP 125/59; PULSE 97; RESP 18; O2SAT 100
[2022-11-24 09:57] VITALS: BP 125/59; PULSE 97; RESP 18; O2SAT 100
--- NOTE | 2022-11-24 09:59 | P.PCN_ITS ---
Procedure Date: 11/24/22 Time: 09:50 Anesthesiologist:: Max Dias CRNA Complications:: None Pre-procedure Diagnosis:: Degenerative disc lumbar spine multilevels. Lumbar radiculopathy. Lumbar facet arthropathy. Lumbar spondylosis. Thoracolumbar scoliosis. Post-procedure Diagnosis:: Same. Indications for Procedure:: Patient is a pleasant 47-year-old female that comes our clinic today for bilateral L4-5, L5-S1 facet blocks/medial branch block. Patient has pain on the left greater than right. She describes the pain as constant, dull, aching. Specifically, pain increases nightly. Patient has difficulty sleeping through the night secondary to low back pain and having difficulty finding a comfortable position. She rates her pain 7/10. However, she does report report her pain is intermittent. Procedure Details:: Informed consent was obtained and the risk and benefits of the procedure was explained to the patient. Patient was taken to the procedure room where noninvasive monitors were placed, including noninvasive blood pressure cuff as well as pulse oximeter. The area over the lumbar spine was cleansed using chlorhexidine as a cleansing solution. I anesthetized the skin and subcutaneous tissues with 1% Lidocaine. I placed 22-gauge spinal needles into the facet joint/ medial branches of L4-L5, and L5-S1] bilaterally. Needle placement was confirmed with fluoroscopy. After confirmation of needle placement, each site was injected with 1 mL of 1% lidocaine and 0.25 % Marcaine and 10 mg of Depo- Medrol. A total of 80 mg of depo medrol was used for bilateral medial branch blocks of L4-L5, and L5-S1] bilaterally. Patient tolerated the procedure without difficulty. There were no complications. Plan and Disposition:: Patient was discharged without incident.
[2022-11-24 10:00] VITALS: BP 107/68; PULSE 90; RESP 18; O2SAT 100
== END 2022-11-24 10:00 | disposition home or self-care (01) ==
PROVIDERS: PCP Nurse Practitioner Family; Visit Provider Nurse Anesthetist, Certified Registered
DX: M47.896 Other spondylosis, lumbar region (principal); M51.16 Intervertebral disc disorders with radiculopathy, lumbar region; M41.9 Scoliosis, unspecified
CPT/HCPCS: 64493; 64494; J1040

== ENCOUNTER 2023-08-26 11:05 | Outpatient (CLI) | payer BC, SELFPAY ==
--- NOTE | 2023-08-26 11:21 | XR_ITS ---
FINAL REPORT CLINICAL HISTORY: RIB CONTUSION, FALL FROM HORSE, LEFT SIDED PAIN COMPARISON: None FINDINGS: LEFT RIBS: A single view of the chest with 3 views of the ribs were obtained. There is no acute cardiopulmonary process. No pneumothorax is identified. No displaced rib fracture identified. IMPRESSION: No evidence of displaced rib fracture or pneumothorax. Reviewed, Interpreted and Dictated by Dashawn Jacques MD Transcribed by Karon Bowling Authenticated and [facility]
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
[2023-08-26 12:05] LABS: Basophils # 0.1 K/mm3 (0-0.2); Eosinophils % 0.7 % (0.1-12.0); Hematocrit 42.2 % (37.0-47.0); Hemoglobin 13.8 g/dL (12.2-16.2); Lymphocytes # 1.8 K/mm3 (0.7-4.5); Lymphocytes % 32.8 % (10-50); Mean Corpuscular HGB Conc 32.7 g/dL (31.8-35.4); Mean Corpuscular Hemoglobin 32.3 pg (27.0-31.2); Mean Corpuscular Volume 98.7 fl (81-99); Mean Platelet Volume 8.7 fl (7.4-10.4); Monocytes # 0.4 K/mm3 (0.1-1.0); Monocytes % 7.5 % (1.7-9.3); Neutrophils # 3.1 K/mm3 (1.8-7.8); Neutrophils % 57.9 % (37.0-80.0); Platelet Count 266 K/mm3 (142-424); Red Blood Count 4.28 M/mm3 (4.20-5.40); Red Cell Distribution Width 13.3 % (11.5-17.5); White Blood Count 5.3 K/mm3 (4.8-10.8)
[2023-08-26 12:39] LABS: Chloride 107 mmol/L (98-107)
[2023-08-26 12:40] LABS: Potassium 3.9 mmoL/L (3.5-5.1); Sodium 139 mmol/L (136-145)
[2023-08-26 12:42] LABS: Alanine Aminotransferase 14 U/L (12-78); Alkaline Phosphatase 70 U/L (38-126); Anion Gap 9.9 mEq/L (5-15); Aspartate Amino Transferase 29 U/L (14-36); Bilirubin,Total 1.2 mg/dl (0.2-1.3); Blood Urea Nitrogen 12 mg/dl (7-17); Carbon Dioxide 26 mmol/L (22.0-30.0); Cholesterol 186 mg/dl (140-200); Estimated Glomerular Filt Rate 77 ml/min (>60); GFR (African American) 93 ML/MIN (>60); Triglycerides 82 mg/dl (30-150); VLDL Cholesterol 16 mg/dL (0-40)
[2023-08-26 12:43] LABS: Albumin Level 4.1 g/dl (3.5-5.0); Albumin/Globulin Ratio 1.6 (1.1-1.8); Calcium 9.1 mg/dl (8.4-10.2); Chol/HDL Ratio 3.6 (1-3.5); Globulin 2.6 g/dL (1.3-3.2); Glucose 87 mg/dl (74-100); HDL Cholesterol 51 mg/dl (40-60); Total Protein,Serum 6.7 g/dl (6.3-8.2)
[2023-08-26 12:54] LABS: Direct LDL Cholesterol 94.31 mg/dL (100-129)
== END 2023-08-26 23:59 | disposition home or self-care (01) ==
PROVIDERS: Nurse Practitioner Obstetrics & Gynecology; PCP Nurse Practitioner; Visit Provider Nurse Practitioner
DX: R07.82 Intercostal pain (principal); S20.219A Contusion of unspecified front wall of thorax, initial encounter; Z01.419 Encounter for gynecological examination (general) (routine) without abnormal findings
CPT/HCPCS: 36415; 71046; 71100; 80053; 80061; 85025

== ENCOUNTER 2024-06-20 08:47 | Outpatient (CLI) | payer BC, SELFPAY ==
--- OUTSIDE RECORDS SUMMARY | 2024-06-20 08:49 | XMS_ITS | Data Portability ---
Author Organization [facility] MAIDA Pierre [place] CLOSED Address [address] [place] [address] Care Team Providers Care Bottle Washing Machine Operator Name Role Phone MARILEE BOCANEGRA Primary Care Provider JOSUÉ FUENTES Freight Weigher Assessment No assessment recorded. Plan of Treatment Reminders Order Date Submit Date Provider Last Modified By Organization Details Last Modified Time Details Appointments None record ed. Lab None record ed. Referral None record ed. Procedures None record ed. Surgeries None record ed. Imaging None record ed. Medication Orders None record ed. Patient TargetsNo targets recorded. Patient InstructionsNo instructions recorded. Reason for Referral None Reported. Procedures Surgical History Date Name Laterality Status Provider Name and Address Organization Details Recorded Time 03/11/2023 DAK - Cryo AK completed Kendrick Hurtado [facility] 03/11/2023 08:49:22 Imaging Results None recorded. Procedure Notes None recorded. Medical Equipment None Reported. Allergies No known drug allergies Medications Not known to be on any medication Vitals None Recorded Social History Question Answer Notes LastModified by Organizat ion Details LastModified Time Tobacco Smoking Status Never Smoker [facility] 03/11/2023 08:16:46 What Is Your Level Of Alcohol Consumption? None Information not available 03/11/2023 What Was The Date Of Your Most Recent Tobacco Screening? 03/11/2023 [email or web address] Information not available 03/11/2023 Sex: Female Functional Status None recorded. Mental Status None recorded. Family History Relationship Description Onset Age of this Age Resolved Age Notes LastModified by Organization Details LastModified Time Father No current problems or disability [email or web address] Not available 06/2023 08:16:36 Mother No current problems or disability Not available 06/2023 08:16:36 Medical History Condition Response Varicose Veins N Autoimmune disease N Skin Problems N Squamous Cell Carcinoma N Basal Cell Carcinoma N Skin Cancer N Eczema N Melanoma N Other Skin Condition N Acne N Gynecological HistoryNo gynecological history recorded. Obstetrics History GPAL:G 0 P 0 0 0 0 Past Encounters Encounter ID Performer Location Encounter Start Date Encounter Closed Date Diagnosis/Indication Diagnosis SNOMED-CT Code Diagnosis ICD10 Code Diagnosis Note [id number] JOSUÉ FUENTES PA-C [address] [place] [address] 03/11/2023 08:08:48 03/12/2023 14:01:29 Multiple benign melanocytic nevi 108337407 D22.5 - Benign moles seen on exam today- SPF 30 or higher broad-spec trum sunscreen recommende d with re-applica tion every 2 hours- Discussed sun protection measures, including wide-brimm ed hat, sun-protec tive clothing, and avoidance of sun during peak hours of 10am-4pm- Avoid tanning beds as these can increase the chances of all 3 types of skin cancer- Instructed to monitor for changes and to call us for appointmen t with any changing or worrisome lesions Seborrheic keratosis 394 270643 L82.1 - Benign overgrowth s of skin - Hereditary Senile angioma 2150576 I 78.1 - Benign blood vessel growths - Hereditary Solar lentigo 25450245 L 81.4 - Benign brown spots - Sun-induce d Actinic keratosis 007 L57.0 Actinic keratoses are precancero us lesions that may progress to squamous cell carcinoma if untreated. UV light and genetics may increase risk. Treated lesions should blister, scab over, and heal within a few weeks. If treated lesion(s) does not resolve within 1-2 months, patient agrees to follow up for re-evaluat ion. Health Concerns Section Related Observation LastModified by Organization Detai ls LastModified Time None Recorded Concern Status LastModified by Organization Details LastModified Time None Recorded Advance Directives Directive None Recorded Payers Encounter Date Sequence Insurance Name Policy Number Policy Wolfe Covered Member ID Wolfe Member ID Guarantor Name 03/11/2023 1 [place] [id number] [address] [id number] [address] Notes Date Note Type Note Provider Name and Address Organization Details Recorded Time 03/11/2023 text/html 1. FBSEDuration: annualHx : noneReports: AK's on bilateral temples, nose JOSUÉ FUENTES PA-C [address] [place], [address], [facility] 03/11/2023 12:47:24 OBGyn Episode No OBEpisode recorded.
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
== END 2024-06-20 23:59 | disposition home or self-care (01) ==
LOC: RAD 08:48
PROVIDERS: PCP Nurse Practitioner; Visit Provider Nurse Practitioner
DX: S49.91XA Unspecified injury of right shoulder and upper arm, initial encounter (principal)
CPT/HCPCS: 73030

== ENCOUNTER 2024-07-20 09:50 | Outpatient (CLI) | payer BC, SELFPAY ==
--- OUTSIDE RECORDS SUMMARY | 2024-07-20 09:52 | XMS_ITS | Data Portability ---
Author Organization [facility] MAIDA Pierre [place] CLOS[place] Address [address] [place] [address] Care Team Providers Care Motor Vehicle Salesperson Name Role Phone MARILEE BOCANEGRA Primary Care Provider JOSUÉ FUENTES Director Teen Post Assessment No assessment recorded. Plan of Treatment [...] DAK - Cryo AK completed Kendrick Hurtado [facility] 03/11/2023 08:49:22 Imaging Results None recorded. Procedure Notes None recorded. Medical Equipment None Reported. Allergies No known drug allergies Medications Not known to be on any medication Vitals None Recorded Social History Question Answer Notes LastModified by Organizat ion Details LastModified Time Tobacco Smoking Status [facility] Smoker [facility] 03/11/2023 08:16:46 What Was The Date Of Your Most Recent Tobacco Screening? 03/11/2023 [email or web address] Information not available 03/11/2023 Sex: Female Functional Status Question Answer Note LastModified by Organization D etails LastModified Time What is your level of alcohol consumption? None Information not available 03/11/2023 Mental Status None recorded. Family History Relationship Description Onset Age of this Age Resolved Age Notes LastModified by Organization Details LastModified Time Father No current problems or disability [email or web address] Not available 06/2023 08:16:36 Mother No current problems or disability [email or web address] Not available 06/2023 08:16:36 Medical History Condition Response Varicose Veins N Skin Problems N Autoimmune disease N Squamous Cell Carcinoma N Basal Cell Carcinoma N Skin Cancer N Eczema N Melanoma N Other Skin Condition N Acne N Gynecological HistoryNo gynecological history recorded. Obstetrics History GPAL:G 0 P 0 0 0 0 Past Encounters Encounter ID Performer Location Encounter Start Date Encounter Closed Date Diagnosis/Indication Diagnosis SNOMED-CT Code Diagnosis ICD10 Code Diagnosis Note [id number] JOSUÉ FUENTES PA-C [address] [address] 03/11/2023 08:08:48 03/12/2023 14:01:29 Multiple benign melanocytic nevi 032385067 D22.5 - Benign moles seen on exam [...] changing or worrisome lesions Seborrheic keratosis 394 300838 L82.1 - Benign overgrowth s of skin - Hereditary Senile angioma 7613007 I 78.1 - Benign blood vessel growths - Hereditary Solar lentigo 85714215 L 81.4 - Benign brown spots - [...] Recorded Advance Directives Directive None Recorded Payers Insurance Date Sequence Insurance Name Policy Number Policy Wolfe Covered Member ID Wolfe Member ID Guarantor Name 06/13/2024 1 [place] [id number] [address] [id number] [address] Notes Date Note Type Note Provider Name and Address Organization Details Recorded Time 03/11/2023 text/html 1. FBSEDuration: annualHx : noneReports: AK's on bilateral temples, nose JOSUÉ FUENTES PA-C [address] [place], [address], [facility] 03/11/2023 12:47:24 OBGyn Episode No OBEpisode recorded.
--- NOTE | 2024-07-20 10:00 | MM_ITS ---
PROCEDURE INFORMATION: Exam: MG Bilateral Screening 3D Mammography Exam date and time: 07/20/2024 9:56 AM Age: 49 years old Clinical indication: Screening examination. TECHNIQUE: Imaging protocol: Bilateral Screening tomosynthesis and 2D mammography including computer-aided detection (CAD) when performed. COMPARISON: 1. MG MM DIG SCREENING MAMM BI W/CAD 04/30/2022 2:34 PM 2. MG MAMMOGRAPHY BREAST DIAGNOSTIC TOMOSYNTHESIS BILATERAL 02/25/2021 8:17 AM FINDINGS: MAMMOGRAPHY: Breast composition: The breasts are extremely dense, which lowers the sensitivity of mammography. Mass: None. Architectural distortion: None. Calcifications: No suspicious calcifications. Asymmetric density: None. Skin thickening: None. Axillary adenopathy: None. IMPRESSION: No mammographic evidence of malignancy. Annual screening is recommended unless otherwise clinically indicated. ASSESSMENT: BI-RADS Category 1: Negative.
== END 2024-07-20 23:59 | disposition home or self-care (01) ==
LOC: RAD 09:50
PROVIDERS: PCP Nurse Practitioner; Visit Provider Nurse Practitioner Obstetrics & Gynecology
DX: Z12.31 Encounter for screening mammogram for malignant neoplasm of breast (principal)
CPT/HCPCS: 77063; 77067

== ENCOUNTER 2024-08-10 06:47 | Outpatient (CLI) | payer BC, SELFPAY ==
--- OUTSIDE RECORDS SUMMARY | 2024-08-10 06:50 | XMS_ITS | Data Portability ---
Author Organization [facility] MAIDA Pierre [place] CLOSED Address [address] [place] [address] Care Team Providers Care Solid Waste Landfill Technician Name Role Phone MARILEE BOCANEGRA Primary Care Provider [phone] JOSUÉ FUENTES Hedis Specialist Assessment No assessment recorded. Plan of Treatment [...] DAK - Cryo AK completed Kendrick Hurtado [facility] 03/11/2023 08:49:22 Imaging Results None recorded. Procedure Notes None recorded. Medical Equipment None Reported. Allergies No known drug allergies Medications Not known to be on any medication Vitals None Recorded Social History Question Answer Notes LastModified by Organizat ion Details LastModified Time Tobacco Smoking Status [facility]oker [facility] 03/11/2023 08:16:46 What Was The Date Of Your Most Recent Tobacco Screening? 03/11/2023 [email or web address] Information not available 03/11/2023 Sex: Female Functional Status Question Answer Note LastModified by Organization D etails LastModified Time What is your level of alcohol consumption? None [email or web address] Information not available 03/11/2023 Mental Status None recorded. Family History Relationship Description Onset Age of this Age Resolved Age Notes LastModified by Organization Details LastModified Time Father No current problems or disability [email or web address] Not available 06/2023 08:16:36 Mother No current problems or disability [email or web address] Not available 06/2023 08:16:36 Medical History Condition [...] SNOMED-CT Code Diagnosis ICD10 Code Diagnosis Note [id number] JOSUÉ FUENTES PA-C [address] [address] 03/11/2023 08:08:48 03/12/2023 14:01:29 Multiple benign melanocytic nevi [id number] D22.5 - Benign moles seen on exam [...] changing or worrisome lesions Seborrheic keratosis 394 851651 L82.1 - Benign overgrowth s of skin - Hereditary Senile angioma 0678911 I 78.1 - Benign blood vessel growths - Hereditary Solar lentigo 60062572 L 81.4 - Benign brown spots - [...] Wolfe Member ID Guarantor Name 06/13/2024 1 [place] ([place] [id number] [id number] Notes Date Note Type Note Provider Name and Address Organization Details Recorded Time 03/11/2023 text/html 1. FBSEDuration: annualHx : noneReports: AK's on bilateral temples, nose JOSUÉ FUENTES PA-C [address] [place], [address], [facility] 03/11/2023 12:47:24 OBGyn Episode No OBEpisode recorded.
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
== END 2024-08-10 23:59 | disposition home or self-care (01) ==
LOC: RAD 06:48
PROVIDERS: PCP Nurse Practitioner; Visit Provider Nurse Practitioner
DX: M51.9 Unspecified thoracic, thoracolumbar and lumbosacral intervertebral disc disorder (principal)
CPT/HCPCS: 72146

== ENCOUNTER 2024-08-17 13:55 | Outpatient (POV) | payer BC, SELFPAY ==
--- OUTSIDE RECORDS SUMMARY | 2024-08-17 14:47 | XMS_ITS | Clinical Summary ---
Author Organization [facility] Address [address] [place] [address] Care Team Providers Care Retail Business Manager Name Role Phone Tyrone Shaw MD Primary Care Provider [phone] Allergies No known active allergies Medications No known medications Family History Medical History Relation Name Comments Breast cancer Neg Hx Social History Tobacco Use Types Packs/Day Years Used Date Smoking Tobacco: Never Smokeless Tobacco: Never Comments No Sex and Gender Information Value Date Recorded Sex Assigned at Not on file Legal Sex Female 9:18 AM EDT Gender Identity Not on file Sexual Orientation Not on file Last Filed Vital Signs Vital Sign Reading Time Taken Comments Blood Pressure 110/58 09/02/2020 8:10 AM EDT Pulse 75 09/02/2020 8:10 AM EDT Temperature - - Respiratory Rate 18 09/02/2020 8:10 AM EDT Oxygen Saturation 100% 09/02/2020 8:10 AM EDT Inhaled Oxygen Concentration - - Weight 65.8 kg (145 lb) 02/25/2021 8:12 AM EST Height 165.1 cm (5' 5 ) 02/25/2021 8:12 AM EST Body Mass Index 24.13 02/25/2021 8:12 AM EST Plan of Treatment Health Maintenance Due Date Last Done Comments [facility]-Depression Screening 1977 [facility]-/Child/Adol SDOH Screenings 1977 [facility]- SDOH Screenings 07/21/1995 [facility]-Adult SDOH Screenings 07/21/1995 [facility]-DTaP,Tdap,and Td Vaccine s (1 - Tdap) 1996 [facility]-Hepatitis B Vaccines (1 of 3 - 19+ 3-dose series) 1996 [facility]-Pap Smear 1998 [facility]-Cervical Cancer Screening 07/21/2007 [facility]-HPV/Cotest 07/21/2007 CT Colonography 2022 Colonoscopy 2022 FIT-DNA 2022 FIT 2022 FOBT 2022 Sigmoidoscopy 2022 [facility]-Colorectal Cancer Screening 2022 [id number] Vaccine ( season) 2023 01/07/2021, 04/12/2020, 03/14/2020 [facility]-Influenza Vaccine (Seas[place] n Ended) 2024 [facility]-Zoster Vaccines (1 of 2) 07/21/2027 HPV Vaccines Aged Out No longer eligi ble based on patient's age to complete this topic [facility]-HIB Vaccines Aged Out No longer e ligible based on patient's age to complete this topic [facility]-Hepatitis A Vaccines Aged Out No longer eligible based on patient's age to complete this topic [facility]-IPV Vaccines Aged Out No longer e ligible based on patient's age to complete this topic [facility]-Pneumococcal Vaccine: Pediatrics (0 to 5 Years) and At-Risk Patients (6 to 49 Years) Aged Out No longer eligible b ased on patient's age to complete this topic [facility]-Rotavirus Vaccines Aged Out No lo nger eligible based on patient's age to complete this topic Insurance NIC[employer] Care Teams Retail Business Manager Relationship Specialty Start Date End Date Tyrone Shaw MD [address] [facility] [place] [address] PCP - General 08/22/20
--- NOTE | 2024-08-17 14:49 | EXP.PAIN.SOA ---
[facility] Disclaimer: The information contained in this section may have been updated after the patient was seen, as this information can be updated by other users. Medical History Urinary tract infection Surgical History History of endometrial ablation History of appendectomy History of tubal ligation History of section X3 Family History Other No significant family history Social History Smoking Status: Never smoker second hand exposure: No alcohol intake: never substance use type: denies use current occupational status: employed Travel in the last 8 weeks?: None household members: spouse housing: house current occupational exposures/hazards: No caffeine: Yes PM Subjective & Objective Subjective Subjective:: Patient is a pleasant 49-year-old female who presents today for worsening mid back pain along the left side. Patient did end up having an issue last fall where she fell from a horse and ended up with some rib fractures. Patient states since then she has had chronic pain there along her left mid back. Patient has tried multiple conservative measures including oral medication such as Tylenol and ibuprofen along with heat and ice and topicals with minimal relief. Patient has been prescribed multiple medications including Flexeril, methocarbamol, tramadol, hydrocodone with no additional improvement. Patient has tried multiple lidocaine patches with the 4% prescription as well as the compounded cream. Patient is interested in any help we may be able to provide. Patient states the pain is interfering with her ability perform activities of daily living such as cooking and cleaning. Patient has also been to the chiropractor for 9 visits with no changes. Patient feels like she just cannot do anything due to the pain. Her Dexter has been reviewed and is appropriate. Review of Systems: General: No recent weight changes, no fever, no sleep disturbances Respiratory: No cough, no shortness of air, no recurring pulmonary infections Cardiovascular/peripheral vascular: No chest pain, no palpitations, no edema, no shortness of breath Gastrointestinal: No new onset incontinence, normal bowel movements reported Genitourinary: No new onset incontinence Musculoskeletal: Mid back pain Psychiatric: [Normal mood/affect] Neurological: [Denies weakness in extremities], [denies balance issues] Pain at rest (0-10 scale): 7 Objective Objective:: Physical Exam: General: Alert and oriented x3, no acute distress, pleasant and cooperative Lungs: Respirations even and unlabored, symmetrical chest expansion Eyes: PERRL Musculoskeletal: Flexion and extension of thoracic [spine] somewhat guarded secondary to pain, point tenderness along left thoracic latissimus muscles Neurological: Speech clear, no gross sensory deficit Has patient had previous pain injection?: No Conservative treatment options previously tried: NSAIDS Length of treatment: Longer than 12 weeks, Home exercise plan Length of treatment: Longer than 12 weeks, Chiropractor Length of treatment: 9 visits with no improvement and Prescription medications Length of treatment: Longer than 12 weeks Meds Home Medications and Allergies Home Medications ?Medication ?Instructions ?Recorded ?Confirmed ?Type naproxen 250 mg tablet 250 mg PO BID PRN 08/19/23 08/19/23 History New Prescriptions to Start Prescriptions: Allergies Allergy/AdvReac Type Severity Reaction Status Date / Time No Known Allergies Allergy Verified 08/19/23 08:55 Assessment and Plan *Assessment and plan (1) Mid back pain on left side: Status: Acute Category: Medical Code(s): M54.9 - Dorsalgia, unspecified (2) Myofascial pain on left side: Status: Acute Category: Medical Code(s): M79.18 - Myalgia, other site Plan Patient is experiencing worsening pain in her mid back along the left side with limited range of motion and point tenderness along her left thoracic latissimus muscles. I did discuss with patient that I do believe she would benefit from trigger point injections at this location. Risk and benefits were discussed with patient and she would like to proceed forward with this plan of care. Patient has tried and failed conservative therapy including oral medications, heat and ice, topicals, chiropractor therapy and continued at home stretching exercise that was physician guided for longer than 12 weeks. Patient will be submitted for trigger point injections of her left thoracic latissimus muscles. I will also send in a prescription of 5% lidocaine patches. We did discuss the possibility of trying baclofen however patient wants to go home and make sure that she has not already been prescribed this medication in the past. Patient was counseled to call our office if she would like for us to send in a prescription of this medication. We would send in baclofen 5 mg 3 times daily as needed with a 2-week supply. Patient has been instructed to contact the clinic with any concerns before the next appointment. Dr. Pearce has reviewed this note and agrees with this plan of care. This note was dictated using voice recognition software and make contain errors or omissions. All injections are used with Lidocaine, Bupivacaine and dexamethasone. Occasionally urine drug screen is needed to verify patient's compliance with our office pain contract. This is ordered based off specific treatments related to chronic pain with the potential to abuse certain medications.
[2024-08-17 15:11] VITALS: BP 115/70; PULSE 74; RESP 18; O2SAT 98; BMI 23.3
== END 2024-08-17 23:59 | disposition home or self-care (01) ==
PROVIDERS: PCP Nurse Practitioner; Visit Provider Nurse Practitioner Family
DX: M54.9 Dorsalgia, unspecified (principal); M79.18 Myalgia, other site; G89.29 Other chronic pain
CPT/HCPCS: 99212; G0463

== ENCOUNTER 2024-08-24 15:06 | Day surgery (SDC) | payer BC, SELFPAY ==
--- NOTE | 2024-08-24 15:17 | P.HP_ITS ---
History of Present Illness *Admission Date: 08/24/24 *Reason for visit:: Trigger point; myofascial pain *History of present illness: Same [facility] Disclaimer: The information contained in this section may have been updated after the patient was seen, as this information can be updated by other users. Medical History Urinary tract infection Surgical History History of endometrial ablation History of appendectomy History of tubal ligation History of section X3 Family History Other No significant family history Social History Smoking Status: Never smoker second hand exposure: No alcohol intake: never substance use type: denies use current occupational status: employed Travel in the last 8 weeks?: None household members: spouse housing: house current occupational exposures/hazards: No caffeine: Yes Other Medical History Have you received the Flu Vaccine for this season: No Have you received the Pneumonia Vaccine: Yes Review of Systems Review of Systems Review of systems:: pertinent systems reviewed and negative unless documented below Review of systems (narrative): Review of Systems: General: No recent weight changes, no fever, no sleep disturbances Respiratory: No cough, no shortness of air, no recurring pulmonary infections Cardiovascular/peripheral vascular: No chest pain, no palpitations, no edema, no shortness of breath Gastrointestinal: No new onset incontinence, normal bowel movements reported Genitourinary: No new onset incontinence Musculoskeletal: Low back pain Psychiatric: [Normal mood/affect] Neurological: [Denies weakness in extremities], [denies balance issues] Meds Home Medications and Allergies Home Medications ?Medication ?Instructions ?Recorded ?Confirmed ?Type naproxen 250 mg tablet 250 mg PO BID PRN Pain 08/1808/17/24 History lidocaine 5 % topical patch 1 patch topical DAILY #15 ea 08/17/24 Rx New Prescriptions to Start Prescriptions: Allergies Allergy/AdvReac Type Severity Reaction Status Date / Time No Known Allergies Allergy Verified 08/19/23 08:55 Exam Constitutional Constitutional: no acute distress *Routine HEENT Exam Head: Present normocephalic and atraumatic Eye: Present PERRL ENT: Present mucous membranes moist *Routine Neck Exam Neck: Present supple *Routine Respiratory Exam Respiratory: Present CTA bilaterally *Routine Cardiovascular Exam Cardiovascular: Present RRR *Routine Abdominal Exam Abdominal: Present soft *Routine Rectal Exam Rectal:: deferred *Routine Genitalia Exam Genitalia:: deferred Routine Back/Spine/Pelvis Exam Back/Spine: Present pain with flexion *Routine Skin Exam Skin: Present intact, dry and warm *Routine Neurological Exam Neurological: Present alert and oriented X3 Routine Psychiatric Exam Psychiatric: Present normal affect and normal thought process Assessment and Plan *Assessment and plan (1) Myofascial pain on left side: Status: Acute Category: Medical Code(s): M79.18 - Myalgia, other site (2) Mid back pain on left side: Status: Acute Category: Medical Code(s): M54.9 - Dorsalgia, unspecified Plan Patient has been instructed to contact the clinic with any concerns before the next appointment. Dr. Pearce has reviewed this note and agrees with this plan of care. This note was dictated using voice recognition software and make contain errors or omissions. All injections are used with Lidocaine, Bupivacaine and dexamethasone. Occasionally urine drug screen is needed to verify patient's compliance with our office pain contract. This is ordered based off specific treatments related to chronic pain with the potential to abuse certain medications.
[2024-08-24 15:18] VITALS: BP 111/76; PULSE 88; RESP 18; O2SAT 99
--- NOTE | 2024-08-24 15:20 | EXP.PAIN.PRO ---
Procedure Date: 08/24/24 Time: 15:31 Anesthesiologist:: Francia Delaney APRN Complications:: None Pre-procedure Diagnosis:: Myofascial pain; mid back pain left-sided Post-procedure Diagnosis:: Same Indications for Procedure:: Patient is a pleasant 49-year-old female who presents today for trigger point injections along her mid back along the left side. She does rate her pain today is 7 out of 10. She states she has been doing more around her house. Patient denies any other changes from her last visit. Patient is currently prescribed lidocaine 5% patches and baclofen 5 mg 3 times a day from our office. She states that she tried both of these and did not really notice any additional improvement. Physical Exam: General: Alert and oriented x3, no acute distress, pleasant and cooperative Lungs: Respirations even and unlabored, symmetrical chest expansion Eyes: PERRL Musculoskeletal: Flexion and extension of thoracic [spine] somewhat guarded secondary to pain, point tenderness along the left thoracic latissimus/paraspinous muscles Neurological: Speech clear, no gross sensory deficit Procedure Details:: Patient did have noninvasive blood pressure cuff applied and pulse oximeter. Patient was placed in a sitting position and palpated along her left thoracic latissimus/paraspinous muscles muscles. Areas of point tenderness were marked and using a sterile 25-gauge needle approximately 10 mL of 0.25% bupivacaine, 1% lidocaine and 10 mg dexamethasone were incrementally injected into her left thoracic latissimus/paraspinous muscles. Needle was removed and sterile bandages applied. Patient tolerated the procedure well with no complications and was discharged neurologically intact. Plan and Disposition:: Patient tolerated the procedure well with no complications and was discharged neurologically intact. Patient will return to clinic in 2 weeks for reevaluation of symptoms and plan of care. Patient has been instructed to contact the clinic with any concerns before the next appointment. Dr. Pearce has reviewed this note and agrees with this plan of care. This note was dictated using voice recognition software and make contain errors or omissions. All injections are used with Lidocaine, Bupivacaine and dexamethasone. Occasionally urine drug screen is needed to verify patient's compliance with our office pain contract. This is ordered based off specific treatments related to chronic pain with the potential to abuse certain medications.
[2024-08-24] MEDS: DEXAMETHASONE 10MG/ML 1ML VIAL 10 MG (15:22)
[2024-08-24] MEDS: LIDOCAINE 1% 5ML PF VIAL 5 ML (15:23)
[2024-08-24] MEDS: BUPIVACAINE 0.25% 10ML INJ 25 MG IJ (15:23)
[2024-08-24 15:44] VITALS: BP 103/66; PULSE 88; RESP 18; O2SAT 100; BMI 23.3
[2024-08-24 15:48] VITALS: BP 114/71; PULSE 83; RESP 18; O2SAT 99
== END 2024-08-24 15:36 | disposition home or self-care (01) ==
PROVIDERS: PCP Nurse Practitioner; Visit Provider Nurse Practitioner Family
DX: M54.89 Other dorsalgia (principal); M79.18 Myalgia, other site
CPT/HCPCS: 20552; J0665; J1100; J2003

== ENCOUNTER 2024-09-14 11:15 | Outpatient (POV) | payer BC, SELFPAY ==
--- OUTSIDE RECORDS SUMMARY | 2024-09-14 11:17 | XMS_ITS | Clinical Summary ---
Author Organization [facility] Address [address] [place] [address] Care Team Providers Care Parts Counter Salesperson Name Role Phone Tyrone Shaw MD Primary Care Provider Allergies No known active allergies Medications No [...] 2022 Sigmoidoscopy 2022 [facility]-Colorectal Cancer Screening 2022 [id number] Vaccine ( season) 2023 01/07/2021, 04/12/2020, 03/14/2020 [facility]-Influenza Vaccine (#1) 2024 [facility]-Zoster Vaccines (1 of 2) 07/21/2027 [...] patient's age to complete this topic Insurance [facility] [place] [id number] [place] Care Teams Parts Counter Salesperson Relationship Specialty Start Date End Date Tyrone Shaw MD [address] [place] [address] PCP - General 08/22/20
--- OUTSIDE RECORDS SUMMARY | 2024-09-14 11:17 | XMS_ITS | Data Portability ---
Author Organization [facility] Address [address] [place] [address] Care Team Providers Care Patrol Deputy Sheriff Name Role Phone MARILEE BOCANEGRA Primary Care Provider [phone] JOSUÉ FUENTES Technology Engineer Assessment No assessment recorded. Plan of Treatment [...] DAK - Cryo AK completed Kendrick Hurtado [facility] 03/11/2023 08:49:22 Imaging Results None recorded. Procedure Notes None recorded. Medical Equipment None Reported. Allergies No known drug allergies Medications Not known to be on any medication Vitals None Recorded Social History Question Answer Notes LastModified by Organizat ion Details LastModified Time Tobacco Smoking Status Never Smoker Carmen sosa, [facility] 03/11/2023 08:16:46 What Was The Date Of Your Most Recent Tobacco Screening? 03/11/2023 Information not available 03/11/2023 Sex: Female Functional Status Question Answer Note LastModified by Organization D etails LastModified Time What is your level of alcohol consumption? None Information not available 03/11/2023 Mental Status None recorded. Family History Relationship Description Onset Age of this Age Resolved Age Notes LastModified by Organization Details LastModified Time Father No current problems or disability [email or web address] Not available 06/2023 08:16:36 Mother No current problems or disability [email or web address] Not available 06/2023 08:16:36 Medical History Condition [...] SNOMED-CT Code Diagnosis ICD10 Code Diagnosis Note [id number] JOSUÉ FUENTES PA-C [address] [address] 03/11/2023 08:08:48 03/12/2023 14:01:29 Multiple benign melanocytic nevi [id number] D22.5 - Benign moles seen on exam [...] changing or worrisome lesions Seborrheic keratosis 394 [id number] L82.1 - Benign overgrowth s of skin - Hereditary Senile angioma [id number] I 78.1 - Benign blood vessel growths - Hereditary Solar lentigo [id number] L 81.4 - Benign brown spots - [...] ID Guarantor Name 06/13/2024 1 [employer] [id number] [id number] Notes Date Note Type Note Provider Name and Address Organization Details Recorded Time 03/11/2023 text/html 1. FBSEDuration: annualHx : noneReports: AK's on bilateral temples, nose JOSUÉ FUENTES PA-C [address] [place], [address], [facility] 03/11/2023 12:47:24 OBGyn Episode No OBEpisode recorded.
--- NOTE | 2024-09-14 11:25 | EXP.PAIN.SOA ---
[facility] Disclaimer: The information contained in this section may have been updated after the patient was seen, as this information can be updated by other users. Medical History Urinary tract infection Surgical History History of endometrial ablation History of appendectomy History of tubal ligation History of section X3 Family History Other No significant family history Social History (Updated 08/24/24 @ 15:45 by Norma Tobin RN) Smoking Status: Never smoker second hand exposure: No alcohol intake: never substance use type: denies use current occupational status: employed Travel in the last 8 weeks?: None household members: spouse housing: house current occupational exposures/hazards: No caffeine: Yes PM Subjective & Objective Subjective Subjective:: Patient is a pleasant 49-year-old female who presents today for follow-up of trigger point injections of her left thoracic paraspinous/latissimus muscles on 08/24/2024. She does right at least 50% improvement following these injections. She rates her pain today a 0 out of 10. She states that she had been on vacation and she is really not done a whole lot of activity since. Patient does however state when she starts doing more she will still have that warm tingling/burning sensation there along the left side. She states that it is definitely not as severe as what it was previously but is still present. Patient did try the lidocaine patches however did not notice improvement. Patient has been prescribed baclofen 5 mg 3 times a day from our office. She states that she did not pick these up and is unsure if they would help or not. Her Dexter has been reviewed and is appropriate. Review of Systems: General: No recent weight changes, no fever, no sleep disturbances Respiratory: No cough, no shortness of air, no recurring pulmonary infections Cardiovascular/peripheral vascular: No chest pain, no palpitations, no edema, no shortness of breath Gastrointestinal: No new onset incontinence, normal bowel movements reported Genitourinary: No new onset incontinence Musculoskeletal: Mid back pain left-sided Psychiatric: [Normal mood/affect] Neurological: [Denies weakness in extremities], [denies balance issues] Pain at rest (0-10 scale): 0 Objective Objective:: Physical Exam: General: Alert and oriented x3, no acute distress, pleasant and cooperative Lungs: Respirations even and unlabored, symmetrical chest expansion Eyes: PERRL Musculoskeletal: Flexion and extension of thoracic [spine] somewhat guarded secondary to pain Neurological: Speech clear, no gross sensory deficit Has patient had previous pain injection?: Yes Percent improvement in pain since last injection: 50% Conservative treatment options previously tried: Home exercise plan Length of treatment: Longer than 12 weeks Meds Home Medications and Allergies Home Medications ?Medication ?Instructions ?Recorded ?Confirmed ?Type naproxen 250 mg tablet 250 mg PO BID PRN Pain 08/19/23 08/17/24 History lidocaine 5 % topical patch 1 patch topical DAILY #15 ea 08/17/24 Rx baclofen 5 mg tablet 5 mg PO TID #42 tabs 09/14/24 Rx New Prescriptions to Start Prescriptions: baclofen Francia Delaney Allergies Allergy/AdvReac Type Severity Reaction Status Date / Time No Known Allergies Allergy Verified 08/19/23 08:55 Assessment and Plan *Assessment and plan (1) Myofascial pain on left side: Status: Acute Category: Medical Code(s): M79.18 - Myalgia, other site Plan Patient did have significant improvement with the trigger point injections however is still having some pain with increased activity. I will make sure that she does get the baclofen prescription with a 2-week trial. Patient will return to clinic in 3 weeks for reevaluation of symptoms and plan of care. Patient has been instructed to contact the clinic with any concerns before the next appointment. Dr. Pearce has reviewed this note and agrees with this plan of care. This note was dictated using voice recognition software and make contain errors or omissions. All injections are used with Lidocaine, Bupivacaine and dexamethasone. Occasionally urine drug screen is needed to verify patient's compliance with our office pain contract. This is ordered based off specific treatments related to chronic pain with the potential to abuse certain medications.
[2024-09-14 11:36] VITALS: BP 106/76; PULSE 69; RESP 16; O2SAT 100; BMI 22.4
== END 2024-09-14 23:59 | disposition home or self-care (01) ==
PROVIDERS: PCP Nurse Practitioner; Visit Provider Nurse Practitioner Family
DX: M79.18 Myalgia, other site (principal); Z79.899 Other long term (current) drug therapy
CPT/HCPCS: 99212; G0463